=== PATIENT | male | born 2000 | race Caucasian/White ===

== ENCOUNTER 2019-03-09 06:06 | Day surgery (SDC) | payer OTHER ==
[~2019-03-09] VITALS: Ht 185.4 cm; Wt 85.3 kg
[~2019-03-09 06:06] MED LIST: Doxycycline Hy100 MG PO; HYDACE25S PR; PARO10 PO
--- NOTE | 2019-03-09 07:07 | NUR ---
DR LANE OK'D PATIENT TO KEEP CONTACT LENSES IN. Ambulatory in Day Surgery History, Chart, Medications and Allergies reviewed before start of procedure.Lungs clear T/O to Auscultation. Patient confirms NPO status and agrees with scheduled surgery. Patient States Post-Procedure ride home has been arranged.
--- NOTE | 2019-03-09 07:10 | NUR ---
BODY MAKE UP ARTIST REPORT COMPLETEED AT BEDSIDE
--- NOTE | 2019-03-09 10:02 | NUR ---
INTO STEP RECIEVED PATIENT AND REPORT. PATIENT DENIES PAIN. DENIES VISITOR AT THIS MOMENT.
--- NOTE | 2019-03-09 10:32 | NUR ---
Discharge instructions reviewed with patient. Patient verbalizes understanding. Copy given to patient to take home. Patient States Post-Procedure ride home has been arranged. Discharged via wheelchair to private car for ride home. on way out to car patient asking what is normal to wake up like. informed patient it varied between patients and he informed rn for him he woke up angry and still felt angry but felt he was safe and would not strike out at anyone.
== END 2019-03-09 22:51 | disposition home or self-care (01) ==
LOC: ORSCMMR 06:06 → ORD 07:30 → ORSCMMR 22:51
DX: L05.01 Pilonidal cyst with abscess (principal); F17.210 Nicotine dependence, cigarettes, uncomplicated; Z79.899 Other long term (current) drug therapy; F41.8 Other specified anxiety disorders
CPT/HCPCS: 88304; J0171; J1100; J1885; J1956; J2250; J2405; J2704; J2710; J3010; J7120

== ENCOUNTER 2020-08-22 01:34 | Emergency (ER) | payer OTHER ==
[~2020-08-22] VITALS: Ht 188 cm; Wt 99.8 kg
[2020-08-22] MEDS ORDERED: HYDHCL25 PO (02:04)
[2020-08-22] MEDS ORDERED: ACETAMINOPHEN500 MG PO (02:33)
[2020-08-22] MEDS ORDERED: LIDO700A20 TOP (02:34)
[2020-08-22] MEDS ORDERED: IBUP600 PO (02:34)
== END 2020-08-22 02:45 | disposition home or self-care (01) ==
LOC: ER 01:34
DX: M54.5 Low back pain (principal); Z91.09 Other allergy status, other than to drugs and biological substances; Z79.899 Other long term (current) drug therapy; F17.200 Nicotine dependence, unspecified, uncomplicated; X50.0XXA Overexertion from strenuous movement or load, initial encounter
CPT/HCPCS: 99283; A9270